=== PATIENT | male | born 1975 | race Caucasian/White ===

== ENCOUNTER 2017-01-08 23:17 | Emergency (ER) | payer BC ==
[~2017-01-08] VITALS: Ht 167.6 cm; Wt 78.0 kg
[~2017-01-08 23:17] MED LIST: HYDR5TAB27 PO; NAPR1TAB9 PO
[2017-01-08 23:21] VITALS: TEMP 36.7; Ht 167.6 cm; Wt 78.0 kg
--- NOTE | 2017-01-08 23:40 | EMERGENCY ROOM VISIT NOTE ---
History Report prepared by Sam: Sukhwinder Everett Under the Supervision of: Dr. Josefina Cobb D.O. First contact with patient: 23:25 Chief Complaint: FALL Stated Complaint: FALL- syncopal episode afterwards History of Present Illness The patient is a 41 year old male who presents to the Emergency Room with complaints of a fall that occurred this evening. He rates his current ankle pain an 8/10 in severity and describes it as throbbing. At this time, he was chasing one of his chickens to get it back into it's coop. He climbed onto a wood pile that was 3 feet high. He was also wearing boots because it had rained earlier today. He caught the chicken, and instead of stepping back down, he jumped. He did not see the cinderblock below him. His heels caught the block and his feet went forward. He fell forward onto his knees. He put the chicken back in the coop and went inside. He sat down and took his boots off, and then lost consciousness. When his went to call the ambulance, he woke up. He currently feels at baseline mentally. He denies any medical problems or any current medications. He notes that he broke his arm many years ago and had a similar pain response. He also note he ate an early dinner today. He denies any knee pain. Source of History: patient Onset: This evening Position: ankle (bilateral) Symptom Intensity: 8/10 Quality: other (Throbbing) Timing: constant Modifying Factors (Worsening): movement Associated Symptoms: + LOC Note: He denies any knee pain. Review of Systems See HPI for pertinent positives & negatives. A total of 10 systems reviewed and were otherwise negative. Past Medical & Surgical No past medical history Family History Patient reports no known family medical history. Social History Smoking Status: Never Smoker Smokeless Tobacco Use: No Alcohol Use: none Drug Use: none Marital Status: Housing Status: lives with family Occupation Status: employed Current/Historical Medications Scheduled PRN Ibuprofen (Advil), 200-600 MG PO Q4H PRN for Pain Allergies Coded Allergies: Amoxicillin (Verified Allergy, Intermediate, RED RASH "ALL OVER", 01/09/17) Clavulanic Acid (Verified Allergy, Intermediate, RED RASH "ALL OVER", ) Physical Exam Vital Signs Date Time Temp Pulse Resp B/P (MAP) Pulse Ox O2 Delivery O2 Flow Rate FiO2 01/09/17 01:05 78 18 135/86 97 01/08/17 23:21 36.7 75 18 130/82 96 Room Air Physical Exam HEENT: Head - normocephalic and atraumatic Pupils are equal, round, and reactive to light. Extraocular eye muscles are intact, and sclera are anicteric. Nose - moist nasal mucosa without discharge. Mouth - moist buccal mucosa. Oropharynx is nonerythematous and there is no tonsillar exudate or edema noted. Neck: Supple; no JVD, nuchal rigidity, cervical lymphadenopathy. Heart: Regular rate and rhythm. There is a normal S1 and S2 with no murmurs, clicks, or gallops appreciated. Lungs: Clear to auscultation bilaterally with no wheezes, rales, or rhonchi. Abdomen: Soft, completely nontender, nondistended, with good bowel sounds. There are no palpable pulsatile masses or hepatosplenomegaly. There is no guarding, rigidity, or rebound noted. Extremities: No evidence of cyanosis or clubbing. There are easily palpable peripheral pulses. There is edema and pain over the lateral malleolus of the right ankle. Minimal edema with pain over the lateral malleolus of the left ankle. No pain over the fifth metatarsal bilaterally. No pain or edema to the knees. Skin: warm and dry with good turgor and no rashes. Medical Decision & Procedures ER Provider Diagnostic Interpretation: X-ray results as stated below per interpretation by me: LEFT ANKLE X-RAY: No obvious fracture. Normal ankle mortis. Minimal soft tissue edema over the lateral malleolus. Per me. RIGHT ANKLE X-RAY: No obvious fracture, significant soft tissue edema over the lateral malleolus. Possible widening of the right ankle mortis. Per me. Medications Administered Medications (Trade) Dose Ordered Sig/Flor Route Start Time Stop Time Status Last Admin Dose Admin Ibuprofen (Motrin Tab) 800 mg NOW STAT PO 01/09/17 00:02 01/09/17 00:04 DC 01/09/17 00:08 800 MG Procedure Ibuprofen 800 mg PO ED Course 2325: Past medical records reviewed. The patient was evaluated in room A2. A complete history and physical exam was performed. 0002: Ordered Ibuprofen 800 mg PO. The patient went for plain x-rays of both ankles as described above. 0040: The patient will be placed into Orthoglass on the right ankle. He will also be given crutches. 0057: The patient was placed into a gel splint on the left secondary to his need to weight bare on that extremity. 0100: Upon reevaluation, the patient is resting. I discussed findings and results with him. He verbalized agreement of the treatment plan. He was discharged home. Medical Decision The patient is a 41 year old male who presents to the ED with bilateral ankle pain. Differential diagnosis includes ankle fractures, ankle sprain, vasovagal syncope, cardiac dysrhythmia, and dehydration. I attest that I have personally reviewed the patient's current medication list. Blood Pressure Screening: Patient was found to have a slightly elevated blood pressure due to circumstances. I do not believe that the patient requires hypertension monitoring. This is a 41-year-old male patient who has sprained both of his ankles. Unfortunately, the right ankle appears to have a widened ankle mortise and required Ortho-Glass placement. He will be placed on crutches and will follow- up with [facility] orthopedics for further evaluation. The patient did suffer a syncopal episode some time after the fall. He felt this was secondary to the pain. He did not injure himself in any way as he was sitting down when this episode occurred. The patient does have a history of a previous vasovagal syncopal episode following a painful injury. Impression Primary Impression: Sprain of ankle, left Additional Impressions: Sprain of ankle, right Syncope Scribe Attestation The scribe's documentation has been prepared under my direction and personally reviewed by me in its entirety. I confirm that the note above accurately reflects all work, treatment, procedures, and medical decision making performed by me. Departure Information Dispostion Home / Self-Care Referrals Alex Martin M.D. (PCP) Slim Ureña M.D. Forms HOME CARE DOCUMENTATION FORM, IMPORTANT VISIT INFORMATION Patient Instructions ED Sprain Ankle, [facility], Sprain Ankle Tx Additional Instructions Rest. Take ibuprofen or tylenol for pain Keep the right ankle elevated. Ice both ankles. Follow up with Ortho Problem Qualifiers Primary Impression: Sprain of ankle, left Encounter type: initial encounter Involved ligament of ankle: tibiofibular ligament Qualified Codes: S93.432A - Sprain of tibiofibular ligament of left ankle, initial encounter Additional Impressions: Sprain of ankle, right Encounter type: initial encounter Involved ligament of ankle: tibiofibular ligament Qualified Codes: S93.431A - Sprain of tibiofibular ligament of right ankle, initial encounter
[2017-01-09] MEDS ORDERED: IBUPROFEN 800 MG TAB PO STA (00:02)
[2017-01-09] MEDS ORDERED: IBUP-1050 PO (00:12)
[2017-01-09 01:05] VITALS: BP 135/86; PULSE 78; O2SAT 97
--- NOTE | 2017-01-09 06:15 | DIAGNOSTIC IMAGING REPORT ---
RIGHT ANKLE MIN 3 VIEWS ROUTINE CLINICAL HISTORY: twisted ankle Right trauma COMPARISON: None. DISCUSSION: The bones and joint spaces appear intact. There is no evidence of fracture, dislocation or bony disease. Mild lateral. Malleolar soft tissue edema IMPRESSION: Soft tissue edema. No acute bony abnormality. Electronically signed by: Milton Alanis M.D. 01/09/2017 6:14 AM Dictated Date/Time: 01/09/2017 6:13 AM
--- NOTE | 2017-01-09 07:03 | DIAGNOSTIC IMAGING REPORT ---
LEFT ANKLE MIN 3 VIEWS ROUTINE HISTORY:41 yearsMaletwisted ankle COMPARISON: None available. TECHNIQUE: 3 views of the left ankle. FINDINGS: The talar dome is smooth without osteochondral defect. There is no acute fracture or dislocation. There is moderate-sized ankle joint effusion with associated mild soft tissue swelling. There are no significant degenerative changes or radiopaque foreign body. Note is made of an os peroneum. IMPRESSION: Moderate sized ankle joint effusion with mild soft tissue swelling. No acute fracture or dislocation identified. The above report was generated using voice recognition software. It may contain grammatical, syntax or spelling errors. Electronically signed by: Faisal James 01/09/2017 7:02 AM Dictated Date/Time: 01/09/2017 7:00 AM
== END 2017-01-09 01:05 | disposition home or self-care (01) ==
LOC: C.EDB 23:19 → C.EDA 01-09 01:05
DX: S93.401A Sprain of unspecified ligament of right ankle, initial encounter (principal); S93.402A Sprain of unspecified ligament of left ankle, initial encounter; W19.XXXA Unspecified fall, initial encounter; R55 Syncope and collapse